=== PATIENT | female | born 1955 | race Caucasian/White ===

== ENCOUNTER 2017-05-18 09:16 | Emergency (ER) | payer MEDICAID ==
[~2017-05-18] VITALS: Ht 160 cm; Wt 80.0 kg
[~2017-05-18 09:16] MED LIST: ADVAIR DISK2 INH; ALBUTEROL S2.5 MG/.5 IN; ALBUTEROL SUL0.083 % IN; ALBUTEROL0.5 % IN; AUGMENTIN875TAB OR; CIPRO500 MG PO; DILAUDID 2MG2 MG/TAB PO; ESTRACE2 M1; ESTRACE2 M1 OR; ESTRACE2 MG PO; FERR SULFATE325 MG PO; FERROUS SULF325 M1 PO; FLOVENT HFA220 MCG IN; HYDROMORPHONE HC2 MG PO; LISINOP/HCTZ1 TA1 PO; LORTAB 10 PO; LORTAB 7.5 PO; Levaquin OR; MEDDOSEPAK OR; MEGESTROL AC20 MG PO; NAPROXEN250 MG PO; NEXIUM40 MG PO; OMEPRAZOLE20 MG PO; PREDNISONE10 MG PO; PROAIR HFA IN; RYBIX ODT50 MG OR; SINGULAIR 10 MG10 MG PO
[2017-05-18] MEDS ORDERED: EC-NAPROSYN500 MG PO (09:35)
[2017-05-18 10:14] VITALS: BP 122/66
== END 2017-05-18 10:20 | disposition home or self-care (01) | DRG 605 ==
LOC: ED 09:16
DX: S60.221A Contusion of right hand, initial encounter (principal); S60.051A Contusion of right little finger without damage to nail, initial encounter; W23.1XXA Caught, crushed, jammed, or pinched between stationary objects, initial encounter; Y92.009 Unspecified place in unspecified non-institutional (private) residence as the place of occurrence of the external cause

== ENCOUNTER 2018-03-07 19:56 | Emergency (ER) | payer MEDICAID ==
[~2018-03-07] VITALS: Ht 160 cm; Wt 80.0 kg
[~2018-03-07 19:56] MED LIST changes: +EC-NAPROSYN500 MG PO
[2018-03-07] MEDS ORDERED: PRILOSEC20 MG PO (20:34)
[2018-03-07 23:45] VITALS: BP 129/72
== END 2018-03-07 23:50 | disposition home or self-care (01) ==
LOC: ED 19:56
DX: T63.461A Toxic effect of venom of wasps, accidental (unintentional), initial encounter (principal)

== ENCOUNTER 2018-06-15 14:05 | Emergency (ER) | payer MEDICAID ==
[~2018-06-15] VITALS: Ht 160 cm; Wt 70.0 kg
[~2018-06-15 14:05] MED LIST changes: +PRILOSEC20 MG PO
[2018-06-15] MEDS ORDERED: ATORVASTATIN CA40 MG PO (14:31)
[2018-06-15] MEDS ORDERED: CHLORPHENIR4 MG PO (14:35)
[2018-06-15] MEDS ORDERED: METOPROL TAR25 MG PO (14:36)
[2018-06-15] MEDS ORDERED: HYZAAR1 TA1 PO (14:37)
[2018-06-15] MEDS ORDERED: LOVASTATIN10 MG PO (14:38)
[2018-06-15] MEDS ORDERED: GABAPENTIN600 MG PO (14:40)
[2018-06-15] MEDS ORDERED: LEVOCETIRIZINE D5 MG PO (14:40)
[2018-06-15] MEDS ORDERED: MUCINEX DM1 TA1 PO (14:41)
[2018-06-15 15:52] VITALS: BP 130/73
== END 2018-06-15 16:05 | disposition home or self-care (01) ==
LOC: ED 14:05
DX: S80.01XA Contusion of right knee, initial encounter (principal); M25.461 Effusion, right knee; M25.561 Pain in right knee; W10.9XXA Fall (on) (from) unspecified stairs and steps, initial encounter; Y92.009 Unspecified place in unspecified non-institutional (private) residence as the place of occurrence of the external cause

== ENCOUNTER 2018-06-19 10:19 | Emergency (ER) | payer MEDICAID ==
[~2018-06-19] VITALS: Ht 160 cm; Wt 71.0 kg
[~2018-06-19 10:19] MED LIST changes: +ATORVASTATIN CA40 MG PO; +CHLORPHENIR4 MG PO; +GABAPENTIN600 MG PO; +HYZAAR1 TA1 PO; +LEVOCETIRIZINE D5 MG PO; +LOVASTATIN10 MG PO; +METOPROL TAR25 MG PO; +MUCINEX DM1 TA1 PO
[2018-06-19] MEDS ORDERED: PERCOCET 5/321 COMBO PO (13:02)
[2018-06-19 13:26] VITALS: BP 141/80
== END 2018-06-19 13:26 | disposition home or self-care (01) ==
LOC: ED 10:19
DX: S80.01XA Contusion of right knee, initial encounter (principal); I10 Essential (primary) hypertension; J45.909 Unspecified asthma, uncomplicated; W10.9XXA Fall (on) (from) unspecified stairs and steps, initial encounter; Y92.009 Unspecified place in unspecified non-institutional (private) residence as the place of occurrence of the external cause

== ENCOUNTER 2019-11-16 11:41 | Emergency (ER) | payer MEDICARE, MEDICAID ==
[~2019-11-16 11:41] MED LIST changes: +PERCOCET 5/321 COMBO PO
[2019-11-16 13:33] LABS: HEMATOCRIT 41.6 % (37.0-47.0); IMMATURE GRANULOCYTES 0.3 % (0.0-5.0); MEAN CORPUSCULAR HGB 30.7 pG CALC (26.0-32.0); MEAN CORPUSCULAR HGB CONC 33.9 g/dL CAL (32.0-36.0); NEUT# 4.47 thou/uL (2.00-7.15); RED BLOOD COUNT 4.59 mill/uL (4.20-5.60); RED CELL DISTRI WIDTH 13.2 % (11.5-15.5)
[2019-11-16 13:38] LABS: HEMOGLOBIN 14.1 g/dl (12.0-16.0); MEAN CELL VOLUME 90.6 fL CALC (80.0-100.0)
[2019-11-16 13:52] LABS: ALKALINE PHOSPHATASE 97 u/l (38-126); ANION GAP 11 (6-22 (CALC)); BUN 14 mg/dL (8-23); BUN/CREATININE RATIO 25 (12-20 (CALC)); CARBON DIOXIDE 26 mmol/l (22-30); CHLORIDE 102 mmol/l (95-108); CREATININE 0.6 mg/dL (0.5-1.0); GFR > 60 ML/MIN (>=60 (CALC)); GFR FOR AFR.AMER. > 60 ML/MIN (>=60 (CALC)); POTASSIUM 4.4 mmol/l (3.5-5.1); SODIUM 135 mmol/l (137-146)
[2019-11-16 13:56] LABS: ALBUMIN 4.2 g/dL (3.2-5.0); BILIRUBIN, TOTAL 0.6 mg/dL (0.0-1.4); SGOT/AST 61 u/l (9-36)
[2019-11-16] MEDS ORDERED: MEDDOSEPAK PO (14:12)
[2019-11-16 14:53] VITALS: BP 129/69
== END 2019-11-16 14:50 | disposition home or self-care (01) ==
LOC: ED 11:41
DX: T63.461A Toxic effect of venom of wasps, accidental (unintentional), initial encounter (principal); I10 Essential (primary) hypertension; J45.909 Unspecified asthma, uncomplicated; R06.00 Dyspnea, unspecified

== ENCOUNTER 2023-03-13 07:27 | Observation (INO) | payer MEDICARE, MEDICAID ==
[2023-03-13] VITALS (19 sets, daily range): BP systolic 124–158; BP diastolic 66–83
[~2023-03-13] VITALS: Ht 160 cm; Wt 70.0 kg
[~2023-03-13 07:27] MED LIST changes: +KEFLEX500 MG PO; +LORTAB5 PO; +MEDDOSEPAK PO; +ONDANSETRON4 MG PO
[2023-03-13 07:52] LABS: BASO% 0.3 % (0-3); EOS% 0.9 % (0-8); HEMATOCRIT 41.2 % (37.0-47.0); HEMOGLOBIN 13.7 g/dl (12.0-16.0); LYMPH% 17.2 % (15-41); MEAN CORPUSCULAR HGB 29.6 pG CALC (26.0-32.0); MEAN CORPUSCULAR HGB CONC 33.3 g/dL CAL (32.0-36.0); MONO% 8.2 % (2-13); NEUT# 6.59 thou/uL (2.00-7.15); NEUT% 73.4 % (42-76); RED BLOOD COUNT 4.63 mill/uL (4.20-5.60); RED CELL DISTRI WIDTH 13.8 % (11.5-15.5)
[2023-03-13 08:09] LABS: ALBUMIN 4.3 g/dL (3.2-5.0); ALKALINE PHOSPHATASE 101 u/l (38-126); BUN 14 mg/dL (8-23); BUN/CREATININE RATIO 18 (12-20 (CALC)); CARBON DIOXIDE 21 mmol/l (22-30); CHLORIDE 106 mmol/l (95-108); CREATININE 0.8 mg/dL (0.5-1.0); GFR FOR AFR.AMER. > 60 ML/MIN (>=60 (CALC)); GFR OTHER RACES > 60 ML/MIN (>=60 (CALC)); SGOT/AST 54 u/l (9-36); SODIUM 138 mmol/l (137-146); TOTAL PROTEIN 7.8 g/dL (6.3-8.2)
[2023-03-13 08:10] LABS: ANION GAP 14 (6-22 (CALC)); BILIRUBIN, TOTAL 0.9 mg/dL (0.02-1.3); POTASSIUM 2.8 mmol/l (3.5-5.1)
[2023-03-13] MEDS ORDERED: LOPRESSOR 550 MG/TAB PO (10:23)
[2023-03-13] MEDS ORDERED: ATORVASTATIN CA20 MG PO (13:48)
[2023-03-13] MEDS ORDERED: NORVASC10 M1 PO (13:50)
[2023-03-13] MEDS ORDERED: ZESTRIL40 MG PO (13:53)
[2023-03-13] MEDS ORDERED: SINGULAIR10 MG PO (13:56)
[2023-03-14 00:46] VITALS: BP 145/73
[2023-03-14 02:41] LABS: BASO% 0.2 % (0-3); HEMATOCRIT 35.8 % (37.0-47.0); HEMOGLOBIN 11.8 g/dl (12.0-16.0); IMMATURE GRANULOCYTES 0.2 % (0.0-5.0); LYMPH% 9.2 % (15-41); MEAN CELL VOLUME 90.9 fL CALC (80.0-100.0); MEAN CORPUSCULAR HGB 29.9 pG CALC (26.0-32.0); NEUT# 5.86 thou/uL (2.00-7.15); NEUT% 88.4 % (42-76); RED BLOOD COUNT 3.94 mill/uL (4.20-5.60); RED CELL DISTRI WIDTH 14.2 % (11.5-15.5)
[2023-03-14 02:53] LABS: ALBUMIN 3.8 g/dL (3.2-5.0); ALKALINE PHOSPHATASE 74 u/l (38-126); BUN 20 mg/dL (8-23); BUN/CREATININE RATIO 31 (12-20 (CALC)); CARBON DIOXIDE 22 mmol/l (22-30); CHLORIDE 107 mmol/l (95-108); CREATININE 0.6 mg/dL (0.5-1.0); GFR FOR AFR.AMER. > 60 ML/MIN (>=60 (CALC)); GFR OTHER RACES > 60 ML/MIN (>=60 (CALC)); SGOT/AST 40 u/l (9-36); SODIUM 137 mmol/l (137-146); TOTAL PROTEIN 6.4 g/dL (6.3-8.2)
[2023-03-14 02:54] LABS: ANION GAP 12 (6-22 (CALC)); BILIRUBIN, TOTAL 0.4 mg/dL (0.02-1.3); POTASSIUM 3.9 mmol/l (3.5-5.1)
[2023-03-14 04:27] VITALS: BP 136/79
[2023-03-14 04:29] LABS: CALCULATED LDLCHOLESTEROL 109 mg/dL (62-129 (CALC)); CHOLESTEROL HDL RATIO 2.9 (<4.4 (CALC)); HDL CHOLESTEROL 64 mg/dL (39.0-59.0); TOTAL CHOLESTEROL 188 mg/dl (0-199); TOTAL TRIGLYCERIDES 70 mg/dl (0-149); VLDL CHOLESTROL 14 mg/dl (1-41 (CALC))
[2023-03-14 06:45] VITALS: BP 141/82
[2023-03-14 10:15] VITALS: BP 146/71
== END 2023-03-14 15:14 | disposition home or self-care (01) ==
LOC: ED 07:27 → ED-I 09:00 → ED 09:57 → MS2 09:57
PROVIDERS: Family Medicine; Nurse Practitioner Family; ADMIT Student in an Organized Health Care Education/Training Program; ATTEND Student in an Organized Health Care Education/Training Program
DX: R07.9 Chest pain, unspecified (principal); J45.901 Unspecified asthma with (acute) exacerbation; I10 Essential (primary) hypertension; Z91.09 Other allergy status, other than to drugs and biological substances; Z20.822 Contact with and (suspected) exposure to COVID-19

== ENCOUNTER 2023-07-20 00:30 | Emergency (ER) | payer MEDICARE, MEDICAID ==
[~2023-07-20] VITALS: Ht 160 cm; Wt 65.0 kg
[2023-07-20] VITALS (10 sets, daily range): BP systolic 117–143; BP diastolic 63–79
[~2023-07-20 00:30] MED LIST changes: +ATORVASTATIN CA20 MG PO; +LOPRESSOR 550 MG/TAB PO; +NORVASC10 M1 PO; +SINGULAIR10 MG PO; +ZESTRIL40 MG PO
[2023-07-20] MEDS ORDERED: NEOMYCIN-BACITRACIN-POLYMYXIN 0.5 GM/PAK PAK TOP ONE (00:55)
[2023-07-20] MEDS ORDERED: Diph, Acellular Pertussis, Tet 0.5 ML/VIAL (Tdap) SDV IM ONE (00:55)
== END 2023-07-20 03:50 | disposition home or self-care (01) ==
LOC: ED 00:30
DX: S61.412A Laceration without foreign body of left hand, initial encounter (principal); S51.812A Laceration without foreign body of left forearm, initial encounter; S60.051A Contusion of right little finger without damage to nail, initial encounter; I10 Essential (primary) hypertension; J45.909 Unspecified asthma, uncomplicated; W20.8XXA Other cause of strike by thrown, projected or falling object, initial encounter